=== PATIENT | male | born 1955 | race Caucasian/White ===

== ENCOUNTER 2017-08-01 14:53 | Inpatient (IN) | payer OTHER ==
[2017-08-01 19:03] VITALS: BMI 26.6
[2017-08-01] MEDS ORDERED: MAGNESIUM HYDROXIDE 2,400 MG/10 ML CUP PO PRN (19:06)
[2017-08-01] MEDS ORDERED: ACETAMINOPHEN TAB 325 MG TAB PO PRN (19:06)
[2017-08-01] MEDS ORDERED: MAG HYDROX/AL HYDROX/SIMETH 30 ML CUP PO PRN (19:06)
--- NOTE | 2017-08-01 22:16 | P.MDCNMH ---
History of Present Illness Chief Complaint: depression This is a 62-year-old male history of tobacco, no other significant past medical history of home medications who was admitted to outside emergency department for depression and possible suicidal attempt. Patient states that he was in usual state of health up until 8 months ago when his . Since then he has been suffering with depressed mood, anhedonia, poor sleep, decreased appetite. Symptoms he has been getting progressively worse. No alleviating or alleviating factors. Over the last few days he was feeling severely depressed and felt like he wants to fall asleep and never wake up. He took 6 pills of unknown sleeping aids that he says can be obtained over-the- counter. He denies that that was Benadryl or Tylenol PM. He states that he did his intent was not to kill himself thought to fall asleep. He was found and woke up by his friend and since he looked confused and groggy EMS was called and he was transferred to outside institution ER from where he was admitted to our mental health unit for further evaluation. Patient states that he does not have otherwise any medical problems. His smoking for 40 years half a pack to 1 pack a day. Denies having any respiratory symptoms, COPD, bronchitis. Using any inhalers Review of Systems All systems: negative Psychiatric: Reports anhedonia, Reports depression, Reports sadness/tearfulness , Reports suicidal ideation Past Medical History History of Any Multi-Drug Resistant Organisms: None Reported Past Surgical History: No Surgical Hx Reported Past Anesthesia/Blood Transfusion Reactions: No Reported Reaction Smoking Status: Current every day smoker Medications and Allergies Home Medications Medication Instructions Recorded Confirmed Type No Known Home Medications [No 08/01/17 08/01/17 History Known Home Medications] Allergies Allergy/AdvReac Type Severity Reaction Status Date / Time No Known Allergies Allergy Verified 08/01/17 15:46 Physical Exam Vitals: Vital Signs Temp Pulse Resp BP Pulse Ox 08/01/17 18:52 97.6 F 69 22 138/71 97 08/01/17 18:00 97.6 F 69 22 138/71 97 Intake and Output 08/01/17 08/01/17 08/01/17 06:59 14:59 22:59 Other: Weight 81.919 kg - Constitutional General appearance: cooperative, no acute distress - EENT Eyes: anicteric sclerae, EOMI, PERRLA, poor dentition ENT: hard of hearing - Neck Neck: no lymphadenopathy, normal ROM - Respiratory Respiratory: bilateral: CTA - Cardiovascular Rhythm: regular Heart sounds: normal: S1, S2 - Gastrointestinal General gastrointestinal: distended, no hepatomegaly, soft, no tenderness - Integumentary Integumentary: normal - Neurologic Neurologic: CNII-XII intact - Musculoskeletal Musculoskeletal: gait normal - Psychiatric Psychiatric: A&O x's 3 (musculoskeletal exam reveals fingers clubbing) Cranial Nerve Examination - Cranial Nerves Cranial Nerve I- Olfactory: Intact Cranial Nerve II- Optic: Intact Cranial Nerve III- Oculomotor: Intact Cranial Nerve IV- Trochlear: Intact Cranial Nerve V- Trigeminal: Intact Cranial Nerve - Abducens: Intact Cranial Nerve VII- Facial: Intact Cranial Nerve VIII- Auditory: Intact Cranial Nerve IX- Glossopharyngeal: Intact Cranial Nerve X- Vagus: Intact Cranial Nerve XI- Accessory: Intact Cranial Nerve XII- Hypoglossal: Intact Assessment and Plan (1) Depression Narrative/Plan: Psychiatric evaluation Suicidal precaution Current Visit: Yes Status: Acute Priority: High Code(s): F32.9 - MAJOR DEPRESSIVE DISORDER, SINGLE EPISODE, UNSPECIFIED SNOMED Code(s): 82774115 (2) Tobacco dependence Narrative/Plan: Tobacco avoidance Nicotine replacement Current Visit: Yes Status: Acute Priority: High Code(s): F17.200 - NICOTINE DEPENDENCE, UNSPECIFIED, UNCOMPLICATED SNOMED Code(s): 20075489 (3) Clubbing of digits Narrative/Plan: Advised patient to seek screening CT of the chest as outpatient through his PCP Would suggest obtaining chest x-ray here but patient refused stating that he had chest x-ray early in the ER today. If that's true, try to obtain results Current Visit: Yes Status: Acute Code(s): LOB0622 - SNOMED Code(s): 3880295
[2017-08-02] MEDS: LORazepam 1 MG TAB PO PRN ×2 (00:39→09:25)
[2017-08-02] MEDS: NICOTINE 21MG/24HR PATCH TRANSDERM SCH (09:24)
[2017-08-02 09:39] LABS: HCT 44.9 % (39.0-53.0); HGB 15.1 gm/dL (13.0-17.5); MCH 31.6 pg (25.0-35.0); MCHC 33.6 g/dL (31.0-37.0); Platelet Count 275 k/uL (150-450); RBC 4.78 m/uL (4.30-5.90); WBC 10.3 k/uL (3.8-10.6)
[2017-08-02 10:10] LABS: ALT 54 U/L (21-72); AST 37 U/L (17-59); Albumin 3.9 g/dL (3.5-5.0); Alkaline Phosphatase 206 U/L (38-126); Anion Gap 17 mmol/L; Blood Urea Nitrogen 17 mg/dL (9-20); Calcium 9.7 mg/dL (8.4-10.2); Carbon Dioxide 19 mmol/L (22-30); Chloride 107 mmol/L (98-107); Cholesterol 196 mg/dL (<200); Glucose 176 mg/dL (74-99); HDL Cholesterol 42 mg/dL (40-60); LDL Cholesterol,Calculated 117 mg/dL (0-99); Potassium 4.2 mmol/L (3.5-5.1); Sodium 143 mmol/L (137-145); Total Bilirubin 0.6 mg/dL (0.2-1.3); Total Protein 6.9 g/dL (6.3-8.2); Triglycerides 187 mg/dL (<150)
[2017-08-02] MEDS: CITALOPRAM HYDROBROMIDE 10 MG TAB PO SCH (10:51)
--- NOTE | 2017-08-02 12:14 | P.HP ---
Psychiatric H&P - . H&P Date: 08/02/17 History & Physical: Allergies Allergy/AdvReac Type Severity Reaction Status Date / Time No Known Allergies Allergy Verified 08/01/17 15:46 Vital Signs Temp 97.5 F L 08/02/17 00:45 Pulse 82 08/02/17 00:45 Resp 14 08/02/17 00:45 BP 139/93 08/02/17 00:45 Pulse Ox 97 08/01/17 18:52 Intake & Output 08/01/17 08/02/17 08/02/17 18:59 06:59 18:59 Weight 81.919 kg Laboratory Last Values WBC 10.3 k/uL (3.8-10.6) 08/02/17 09:09 RBC 4.78 m/uL (4.30-5.90) 08/02/17 09:09 Hgb 15.1 gm/dL (13.0-17.5) 08/02/17 09:09 Hct 44.9 % (39.0-53.0) 08/02/17 09:09 MCV 94.0 fL (80.0-100.0) 08/02/17 09:09 MCH 31.6 pg (25.0-35.0) 08/02/17 09:09 MCHC 33.6 g/dL (31.0-37.0) 08/02/17 09:09 RDW 14.0 % (11.5-15.5) 08/02/17 09:09 Plt Count 275 k/uL (150-450) 08/02/17 09:09 Sodium 143 mmol/L (137-145) 08/02/17 09:09 Potassium 4.2 mmol/L (3.5-5.1) 08/02/17 09:09 Chloride 107 mmol/L (98-107) 08/02/17 09:09 Carbon Dioxide 19 mmol/L (22-30) L 08/02/17 09:09 Anion Gap 17 mmol/L 08/02/17 09:09 BUN 17 mg/dL (9-20) 08/02/17 09:09 Creatinine 0.81 mg/dL (0.66-1.25) 08/02/17 09:09 Est GFR (CKD-EPI)AfAm >90 (>60 ml/min/1.73 sqM) 08/02/17 09:09 Est GFR (CKD-EPI)NonAf >90 (>60 ml/min/1.73 sqM) 08/02/17 09:09 Glucose 176 mg/dL (74-99) H 08/02/17 09:09 Calcium 9.7 mg/dL (8.4-10.2) 08/02/17 09:09 Total Bilirubin 0.6 mg/dL (0.2-1.3) 08/02/17 09:09 AST 37 U/L (17-59) 08/02/17 09:09 ALT 54 U/L (21-72) 08/02/17 09:09 Alkaline Phosphatase 206 U/L (38-126) H 08/02/17 09:09 Total Protein 6.9 g/dL (6.3-8.2) 08/02/17 09:09 Albumin 3.9 g/dL (3.5-5.0) 08/02/17 09:09 Triglycerides 187 mg/dL (<150) H 08/02/17 09:09 Cholesterol 196 mg/dL (<200) 08/02/17 09:09 LDL Cholesterol, Calc 117 mg/dL (0-99) H 08/02/17 09:09 HDL Cholesterol 42 mg/dL (40-60) 08/02/17 09:09 TSH 3.380 mIU/L (0.465-4.680) 08/02/17 09:09 08/02/17 11:39 Identification: Patient is a 62-year-old male who was transferred from [facility] where he had been admitted on Saturday after taking [id number] melatonin. Patient was seen in the emergency room there and transferred to a medical floor where he was stabilized until his transferred here yesterday. History of Present Illness: Patient states he bought [id number] sleeping aids because he had not been sleeping and been up every several hours for the last week or so. He states that several days prior to his admission to [facility] he had taken a pain pill from a neighbor because he had a toothache. Patient states he does not usually use pain medication. Patient states that he is been feeling more upset recently because he fears he will lose his house in [facility] as he is unable to make the payments on his salary alone. He states that his in November 2016 from cervical cancer which is been diagnosed 8-9 months earlier. He states that he took care of her along with having home hospice. He states that since her he is been depressed, and recently has not been sleeping well. He states that he has dreams about his and these make him sad as he thinks about the things that they did together. Patient states that this was not a suicide attempt and he has never felt suicidal nor does he want to . Patient does not endorse any auditory hallucinations, visual hallucinations or delusional ideation. Patient does not endorse a history of depression in the past nor does he endorse any manic symptoms. Patient at the other hospital did report that he did have suicidal thoughts at times but had no plan or intent to act. Here the patient saying that he does not want to he took the medications only to assist him in sleeping. He states that he is feeling depressed and is worried about losing his house. 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 Patient states that he is been working there since 2004. Patient reports no prior psychiatric treatment, no prior inpatient admissions. Past Psychiatric History: Patient denies any prior psychiatric admissions, no prior psychiatric treatment and no prior suicide attempts. Past Medical/Surgical History: Patient denies any medical problems or surgical history. Patient states he is hard of hearing but is unable to afford hearing aids. Patient states that he also has dental problems and has not been able to obtain treatment. Family History: Patient is unaware of any family history of psychiatric disorders or alcohol and drug abuse and denies any completed suicides in the family Social History: Patient was born and raised in [place] both of his parents are . He states he has 2 surviving sibs and one sibling who is . Patient completed the 11th grade and then began working. 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 He states he has were for 37 years and had no children. Patient states he is living in their home but is unable to keep making the house payments with only one salary. He states his was disabled and was receiving Social Security disability payments. He states that he does have contact with his siblings but only by phone. He reports no abuse history. Substance Use History: Patient reports using 4-5 beers a week, he states he uses marijuana once every 3 months and denies any other drug use history. Patient smokes one and a half packs of cigarettes a day Legal History: Patient denies any legal history Mental status: Appearance/Attitude: Patient is casually dressed, makes good eye contact and is very hard of hearing and is cooperative Behavior: Patient does not display any psychomotor agitation or retardation. Speech/Language: Patient's speech is spontaneous of normal volume and rhythm and he is coherent Thought Process: Patient is goal-directed there is no evidence of loose association or flight of ideas Thought Content: Patient denies auditory or visual hallucinations and no delusions or paranoid ideation or elicited. Patient reports that he has not been sleeping well for several weeks prior to his admission and this is the reason that he bought [id number] melatonin apparently. Patient states that he was having pain from a toothache and a neighbor gave him an unknown pain medication. Patient states that he's been depressed since his but has never felt like he is wanted to and states that he just wanted to sleep. He states that he has continued to work and his appetite has been good. He does report crying spells. He states that he does have dreams about his , states that they make him sad. Suicidal/Homicidal Ideation: Patient denies any current suicidal or homicidal ideation. Sensorium/Cognition: Patient is alert and oriented to person, place, and time and his recent and remote memory are grossly intact Mood/Affect: Patient's mood is depressed and his affect is blunted Insight/Judgment: Patient's insight and judgment are fair Intellectual Functioning: Patient's intellectual functioning appears average Strength/Weakness: Patient does work, has housing/limited support group, financial difficulties Assessment: Patient presented to [facility] after taking a number of over- the-counter melatonin pills to assist with sleep. Patient was admitted to the medical floor for several days and was transferred to our hospital. Patient states that his in November 2016 after a 9 month course of cervical cancer. Patient states that he has been depressed since her , but does not want to just wanted to sleep. He states that he has crying spells and is concerned that he will lose his house if he is unable to make the house payments on only one salary. Patient states that he has been working and has been caring for his ADLs and his appetite is been good. Patient is extremely hard of hearing and states that he is unable to afford hearing aids. Patient states that he is concerned he will lose his house to foreclosure and have to move into an apartment. He reports that he's never been treated for depression in the past and does not endorse any psychotic symptoms, manic symptoms. Admission Diagnosis: Other specified trauma and stressor related disorder, persistent complex bereavement disorder Plan: Patient was admitted on a voluntary basis, routine observation and group and activity therapy were ordered. Patient also had laboratory studies as well as a medical consultation. Patient and I discussed his symptoms, difficulty sleeping and I suggested that we begin an antidepressant and reviewed the use and side effects. Patient will begin Celexa 10 mg in the morning to target his symptoms of depression. Patient did have a chest x-ray at the prior hospital which was negative. Patient's Ativan was decreased to 0.5 mg as needed for anxiety. Patient was encouraged to attend groups and activities. Patient and I reviewed the use and side effects of Celexa and he was agreeable to a trial of the medication. Patient requires hospitalization to further stabilize his mood.
[2017-08-02] MEDS: LORazepam 0.5 MG TAB PO PRN (21:01)
[2017-08-02 22:52] LABS: Hemoglobin A1C 6.3 % (4.0-6.0)
[2017-08-03] MEDS: LORazepam 0.5 MG TAB PO PRN ×2 (08:49→20:17)
[2017-08-03] MEDS: NICOTINE 21MG/24HR PATCH TRANSDERM SCH (08:49)
[2017-08-03] MEDS: CITALOPRAM HYDROBROMIDE 10 MG TAB PO SCH (08:49)
[2017-08-03] MEDS ORDERED: BACITRACIN OINT 1 EACH PACKET TOPICAL ONE (14:19)
--- NOTE | 2017-08-03 17:25 | P.PN ---
Progress Note - Text Progress Note Date: 08/03/17 Interval history: Patient seen in [facility] [place]. He does not voice any adverse psychotropic medication side effects. Status appears to be improved. He is cooperative with coming to the interview room. New Mental status exam: He is alert, hard of hearing. He is cooperative with the evaluation. His mood seems to be improved overall. He does not verbalize any thoughts of harm to self or others. I do not notice any symptoms of psychosis. He does not show any agitation. Plan: Patient will be maintained on current psychotropic medication regimen. We 'll continue to monitor for any medication side effects. We'll continue to cover this patient through the weekend.
[2017-08-04] MEDS: LORazepam 0.5 MG TAB PO PRN ×2 (08:48→20:51)
[2017-08-04] MEDS: CITALOPRAM HYDROBROMIDE 10 MG TAB PO SCH (08:48)
[2017-08-04] MEDS: NICOTINE 21MG/24HR PATCH TRANSDERM SCH (08:48)
--- NOTE | 2017-08-04 18:32 | P.PN ---
Progress Note - Text Progress Note Date: 08/04/17 Interval history: Patient reports that he is feeling much better. He is having some difficulty it sounds like with sleep overall. His mood he describes as positive. He talks to wanting to build to get back to work. He is seen in [facility] today again. Mental status exam: He is alert and cooperative with the interview. He is hard of hearing. His mood is described as positive. He feels like he has a new attitude. He denies any thoughts of harm to self or others. There is no evidence of psychosis or agitation. Plan Will order trazodone as needed to help with any difficulty with sleep. Maintain Celexa as current. Continue to monitor his ongoing response and for any medication side effects.
[2017-08-04] MEDS: traZODone HCL 50 MG TAB PO PRN (22:51)
[2017-08-05] MEDS: CITALOPRAM HYDROBROMIDE 10 MG TAB PO SCH (08:19)
[2017-08-05] MEDS: NICOTINE 21MG/24HR PATCH TRANSDERM SCH (08:19)
--- NOTE | 2017-08-05 12:35 | P.PN ---
Progress Note - Text Progress Note Date: 08/05/17 Interval History: Patient is a 62-year-old man who is hard of hearing. He reports that he is doing much better, he states he is sleeping now with the addition of the trazodone. He reports that he is no longer feeling suicidal and is not having any crying spells. Patient reports he is feeling less depressed. He states that he's been attending groups but it is difficult due to his poor hearing. Patient reported no side effects from the medications. Mental Status: Appearance/Attitude: Patient is appropriately dressed, makes good eye contact, is hard of hearing and is cooperative Behavior: Patient does not exhibit any psychomotor agitation or retardation. Speech/Language: Patient's speech is spontaneous of normal volume and rhythm and he is coherent Thought Process: Patient is goal-directed there is no evidence of loose association or flight of ideas. Thought Content: Patient denies any auditory or visual hallucinations and no delusions or paranoid ideation were elicited. Patient states that he is feeling less depressed and is no longer having any crying spells. He reports that he is not having any side effects and is feeling better, he states that he slept better using the trazodone. He reports his appetite is good. Suicidal/Homicidal Ideation: Patient denies any current suicidal or homicidal ideation Sensorium/Cognition: Patient is alert and oriented to person, place, and time and his recent and remote memory are grossly intact Mood/Affect: Patient's mood is less depressed and his affect is appropriate. Insight/Judgment: Patient's insight and judgment are fair. Assessment: Patient reports that he is feeling less depressed, no further crying spells and he states he is no longer feeling suicidal. He states with the addition of the trazodone he has been sleeping and feels more rested. Patient reports no side effects from the medication and he states that his appetite is good. Patient states that it is difficult for him to attend groups and activities due to his difficulty hearing. Patient's hemoglobin A1c was elevated and the [facility] doctors were contacted and they referred him for diabetic education. Plan: She will continue on Celexa 10 mg a daily and trazodone 50 mg at bedtime for sleep. Patient and I discussed discharge tomorrow when he was agreeable with this plan. Patient states he plans to return to work.
[2017-08-05] MEDS: LORazepam 0.5 MG TAB PO PRN (20:19)
[2017-08-05] MEDS: traZODone HCL 50 MG TAB PO PRN (22:12)
[2017-08-06 06:54] VITALS: BP 143/69; PULSE 72; RESP 20; TEMP 98.6
[2017-08-06] MEDS: CITALOPRAM HYDROBROMIDE 10 MG TAB PO SCH (08:37)
[2017-08-06] MEDS: NICOTINE 21MG/24HR PATCH TRANSDERM SCH (08:37)
--- NOTE | 2017-08-06 11:29 | P.DS ---
Providers Date of admission: 08/01/17 18:01 Expected date of discharge: 08/06/17 Attending physician: Olga Winslow MD Consults: 08/01/17 19:06 Consult Physician Routine Consulting Provider: Marcia Antonio Consult Reason/Comments: New admission Do you want consulting provider notified?: Yes Primary care physician: Stated None Hospital Course: Discharge Diagnosis: Other specified trauma and stress related disorder, persistent complex bereavement disorder Reason for Admission: Patient is a 62-year-old male who was transferred from [facility] where he had been admitted on Saturday after taking over-the- counter melatonin. Patient was seen in the emergency room there and transferred to a medical floor where he was stabilized until his transferred here yesterday. Patient states he bought [id number] sleeping aids because he had not been sleeping and been up every several hours for the last week or so. He states that several days prior to his admission to [facility] he had taken a pain pill from a neighbor because he had a toothache. Patient states he does not usually use pain medication. Patient states that he is been feeling more upset recently because he fears he will lose his house in [facility] as he is unable to make the payments on his salary alone. He states that his in November 2016 from cervical cancer which is been diagnosed 8-9 months earlier. He states that he took care of her along with having home hospice. He states that since her he is been depressed, and recently has not been sleeping well. He states that he has dreams about his and these make him sad as he thinks about the things that they did together. Patient states that this was not a suicide attempt and he has never felt suicidal nor does he want to . Patient does not endorse any auditory hallucinations, visual hallucinations or delusional ideation. Patient does not endorse a history of depression in the past nor does he endorse any manic symptoms. Patient at the other hospital did report that he did have suicidal thoughts at times but had no plan or intent to act. Here the patient saying that he does not want to he took the medications only to assist him in sleeping. He states that he is feeling depressed and is worried about losing his house. 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 Patient states that he is been working there since 2004. Patient reports no prior psychiatric treatment, no prior inpatient admissions. Mental status on Admission: Appearance/Attitude: Patient is casually dressed, makes good eye contact and is very hard of hearing and is cooperative Behavior: Patient does not display any psychomotor agitation or retardation. Speech/Language: Patient's speech is spontaneous of normal volume and rhythm and he is coherent Thought Process: Patient is goal-directed there is no evidence of loose association or flight of ideas Thought Content: Patient denies auditory or visual hallucinations and no delusions or paranoid ideation or elicited. Patient reports that he has not been sleeping well for several weeks prior to his admission and this is the reason that he bought [id number] melatonin apparently. Patient states that he was having pain from a toothache and a neighbor gave him an unknown pain medication. Patient states that he's been depressed since his but has never felt like he wanted to and states that he just wanted to sleep. He states that he has continued to work and his appetite has been good. He does report crying spells. He states that he does have dreams about his , states that they make him sad. Suicidal/Homicidal Ideation: Patient denies any current suicidal or homicidal ideation. Sensorium/Cognition: Patient is alert and oriented to person, place, and time and his recent and remote memory are grossly intact Mood/Affect: Patient's mood is depressed and his affect is blunted Insight/Judgment: Patient's insight and judgment are fair Hospital Course: Patient was admitted on a voluntary basis, placed on routine precautions and group and activity therapy were also ordered. Patient also had a CBC and a chemistry panel as well as a TSH done while on the unit. Patient also had a medical consultation. Patient's hemoglobin A1c was slightly elevated and diabetic education regarding diet was ordered. Patient reported he was having poor sleep and feeling depressed, crying spells due to his 's recent . Patient was begun on Celexa 10 mg in the morning to target his depressive symptoms and trazodone to 50 mg was added at night to target his sleep disorder. Patient reported he was no longer feeling depressed no longer having crying spells and was sleeping well. Patient had difficulty in groups and activities due to his hearing deficit and lack of hearing aids. Patient states he was ready to return home and return to work. Patient states that he is no longer feeling suicidal, was feeling less depressed and was no longer having sad dreams about his . Allergies No Known Allergies Allergy (Verified 08/01/17 15:46) Laboratory Last Values WBC 10.3 k/uL (3.8-10.6) 08/02/17 09:09 RBC 4.78 m/uL (4.30-5.90) 08/02/17 09:09 Hgb 15.1 gm/dL (13.0-17.5) 08/02/17 09:09 Hct 44.9 % (39.0-53.0) 08/02/17 09:09 MCV 94.0 fL (80.0-100.0) 08/02/17 09:09 MCH 31.6 pg (25.0-35.0) 08/02/17 09:09 MCHC 33.6 g/dL (31.0-37.0) 08/02/17 09:09 RDW 14.0 % (11.5-15.5) 08/02/17 09:09 Plt Count 275 k/uL (150-450) 08/02/17 09:09 Sodium 143 mmol/L (137-145) 08/02/17 09:09 Potassium 4.2 mmol/L (3.5-5.1) 08/02/17 09:09 Chloride 107 mmol/L (98-107) 08/02/17 09:09 Carbon Dioxide 19 mmol/L (22-30) L 08/02/17 09:09 Anion Gap 17 mmol/L 08/02/17 09:09 BUN 17 mg/dL (9-20) 08/02/17 09:09 Creatinine 0.81 mg/dL (0.66-1.25) 08/02/17 09:09 Est GFR (CKD-EPI)AfAm >90 (>60 ml/min/1.73 sqM) 08/02/17 09:09 Est GFR (CKD-EPI)NonAf >90 (>60 ml/min/1.73 sqM) 08/02/17 09:09 Glucose 176 mg/dL (74-99) H 08/02/17 09:[address] Glu mg/dL 134 08/02/17 09:09 Hemoglobin A1c 6.3 % (4.0-6.0) H 08/02/17 09:09 Calcium 9.7 mg/dL (8.4-10.2) 08/02/17 09:09 Total Bilirubin 0.6 mg/dL (0.2-1.3) 08/02/17 09:09 AST 37 U/L (17-59) 08/02/17 09:09 ALT 54 U/L (21-72) 08/02/17 09:09 Alkaline Phosphatase 206 U/L (38-126) H 08/02/17 09:09 Total Protein 6.9 g/dL (6.3-8.2) 08/02/17 09:09 Albumin 3.9 g/dL (3.5-5.0) 08/02/17 09:09 Triglycerides 187 mg/dL (<150) H 08/02/17 09:09 Cholesterol 196 mg/dL (<200) 08/02/17 09:09 LDL Cholesterol, Calc 117 mg/dL (0-99) H 08/02/17 09:09 HDL Cholesterol 42 mg/dL (40-60) 08/02/17 09:09 TSH 3.380 mIU/L (0.465-4.680) 08/02/17 09:09 Discharge Mental Status: Appearance/Attitude: Patient is appropriately dressed, makes good eye contact, patient has a hearing loss and is cooperative Behavior: Patient does not display any psychomotor agitation or retardation Speech/Language: Patient's speech is spontaneous of normal volume and rhythm and he is coherent Thought Process: Patient was goal-directed there is no evidence of loose association or flight of ideas. Thought Content: Patient denied any auditory or visual hallucinations and no delusions or paranoid ideation were elicited. Patient reported that he was sleeping much better with the trazodone, was no longer having crying spells and was no longer feeling as sad and depressed about his 's . Patient states that he was eating well. Suicidal/Homicidal Ideation: Denied any current suicidal or homicidal ideation. Sensorium/Cognition: Patient is alert and oriented to person, place, and time and his recent and remote memory are grossly intact. Mood/Affect: Patient's mood is more upbeat and positive and his affect is brighter Insight/Judgment: Patient's insight and judgment are intact Risk Assessment: Patient's risk is moderate for self-harm due to his 's recent , poor support system Discharge Plan: Patient will return to his own home, he will continue on Celexa 10 mg in the morning and trazodone 50 mg at bedtime. Patient was encouraged to follow up with both the [facility] and [facility] counseling. Patient was given prescriptions for the Celexa and trazodone. Patient was encouraged to follow up with the [facility] clinic as well regarding his elevated hemoglobin A1c. Patient was encouraged to avoid any alcohol or drugs. Patient states that he is ready to return to work. Patient Condition at Discharge: Stable Plan - Discharge Summary New Discharge Prescriptions: New Citalopram Hydrobromide [CeleXA] 10 mg PO DAILY #14 tab Nicotine 21Mg/24Hr Patch [Habitrol] 1 patch TRANSDERM DAILY #28 patch traZODone HCL [Desyrel] 50 mg PO HS PRN #14 tab PRN Reason: Insomnia Discharge Medication List Citalopram Hydrobromide [CeleXA] 10 mg PO DAILY #14 tab 08/06/17 [Rx] Nicotine 21Mg/24Hr Patch [Habitrol] 1 patch TRANSDERM DAILY #28 patch 08/06/17 [ Rx] traZODone HCL [Desyrel] 50 mg PO HS PRN #14 tab 08/06/17 [Rx] Follow up Appointment(s)/Referral(s): intake,intake [Other] - 08/08/17 1:00 pm [facility] [address] of,Hortencia Franz [NON-STAFF] - 08/13/17 8:45 am Patient Instructions/Handouts: How to Stop Smoking (DC), Depression (DC) Activity/Diet/Wound Care/Special Instructions: Follow up regarding HGB A1C of 6.3. Called [facility] and they will see you regardless of the fact that you do not qualify for medicaid. Keep your follow up appointments as scheduled. Continue medications as prescribed. No alcohol or street drugs. No access to guns or weapons. Modify your diet per education from breastfeeding educator. Crisis line if needed . Discharge Disposition: HOME SELF-CARE
== END 2017-08-06 13:55 | disposition home or self-care (01) | DRG 881 ==
LOC: 3MHU 18:01
PROVIDERS: ADMIT Psychiatry & Neurology Psychiatry; ATTEND Psychiatry & Neurology Psychiatry
DX: F43.21 Adjustment disorder with depressed mood (principal); R45.851 Suicidal ideations; F17.210 Nicotine dependence, cigarettes, uncomplicated; H91.90 Unspecified hearing loss, unspecified ear; Z63.4 Disappearance and death of family member; Z72.820 Sleep deprivation; Z59.6 Low income
CPT/HCPCS: 80053; 80061; 83036; 84443; 85027